=== PATIENT | female | born 2000 | race Caucasian/White ===

== ENCOUNTER 2021-03-02 18:48 | Emergency (ER) | payer OTHER ==
[~2021-03-02] VITALS: Ht 167.6 cm; Wt 44.0 kg
--- NOTE | 2021-03-02 19:10 | NUR ---
urine collected and sent to the lab.
--- NOTE | 2021-03-02 19:13 | NUR ---
PATIENT CAME TO ER BED 9 C/O UNABLE TO HOLD DOWN FOOD FOR THE PAST 5x DAYS. PATIENT STATES THAT WHENEVER SHE EATS, SHE WILL VOMIT OUT THE FOOD SHORTLY AFTER. PATIENT DENIES ANY PAIN. ALERT AND ORIENTED x4. DENIES SHORTNESS OF BREATH. CONNECTED TO THE MONITOR. WILL CONTINUE TO MONITOR CLOSELY.
--- NOTE | 2021-03-02 19:19 | NUR ---
BLOOD COLLECTED AND SENT TO THE LAB.
[2021-03-02] MEDS ORDERED: IV NS 0.9% 1,000 ML BAG IV ONE (19:30)
[2021-03-02 19:32] LABS: BASOPHILS % (AUTO) 0.5 % (0.0-2.0); EOSINOPHILS % (AUTO) 0.7 % (0.0-6.0); HEMATOCRIT 44 % (33-45); HEMOGLOBIN 14.6 g/dL (11.5-14.8); LYMPHOCYTES # (AUTO) 1.7 /CMM (0.8-4.8); LYMPHOCYTES % (AUTO) 26.9 % (20.0-44.0); MEAN CORPUSCULAR HGB CONC 33 g/dl (31.0-36.0); MEAN CORPUSCULAR VOLUME 85 fL (82-100); MONOCYTES # (AUTO) 0.7 /CMM (0.1-1.30); MONOCYTES % (AUTO) 10.9 % (2.0-12.0); NEUTROPHILS # (AUTO) 3.8 /CMM (1.8-8.9); PLATELET COUNT (AUTO) 217 /CMM (150-450); RED BLOOD CELL COUNT(AUTO) 5.21 MIL/uL (4.0-5.2); WHITE BLOOD COUNT (AUTO) 6.2 K/uL (4.3-11.0)
[2021-03-02 19:45] LABS: CALCIUM, SERUM 9.5 mg/dL (8.5-10.1); CREATININE 0.8 mg/dL (0.6-1.3); POTASSIUM 3.9 mmol/L (3.5-5.1)
[2021-03-02 19:50] LABS: ALBUMIN 4.8 g/dL (3.4-5.0); BILIRUBIN,DIRECT 0.1 mg/dL (0.0-0.2); BILIRUBIN,TOTAL 0.4 mg/dL (0.2-1.0); TOTAL PROTEIN, SERUM 9.1 g/dL (6.4-8.2)
[2021-03-02 19:57] LABS: BILIRUBIN,URINE Negative (NEGATIVE); COLOR,URINE YELLOW (YELLOW); LEUKOCYTE ESTERASE ,URINE Trace (NEGATIVE); NITRITE, URINE Negative (NEGATIVE); PH,URINE 6.5 (5.0-8.0); PROTEIN,URINE Negative (NEGATIVE); UGLUCOSE Negative (NEGATIVE); UROBILINOGEN,URINE 0.2 EU/dL (0.2)
[2021-03-02 20:28] LABS: BACTERIA,URINE None seen /HPF (None Seen); RBC,URINE 21-50 /HPF (0-2); SQUAMOUS EPITHELIAL CELL,UR Few /HPF (None Seen)
[2021-03-02] MEDS ORDERED: ONDA4TAB11 PO (20:39)
[2021-03-02 20:48] VITALS: BP 118/79
--- NOTE | 2021-03-02 20:48 | NUR ---
IV removed. Catheter intact and site benign. Pressure and 4x4 applied to site. No bleeding noted.
--- NOTE | 2021-03-02 20:48 | NUR ---
Patient discharged to home in stable condition. Written and verbal after care instructions given. Patient verbalizes understanding of instruction.
== END 2021-03-02 20:49 | disposition home or self-care (01) ==
LOC: ER 18:57
DX: R11.0 Nausea (principal); R63.0 Anorexia; F41.9 Anxiety disorder, unspecified
CPT/HCPCS: 36415; 80048; 80076; 81001; 83690; 84703; 85025; 96360; 99283; J7030

== ENCOUNTER 2021-11-03 19:58 | Emergency (ER) | payer OTHER ==
[~2021-11-03 19:58] MED LIST: ONDA4TAB11 PO
--- NOTE | 2021-11-03 20:18 | NUR ---
CALLED FOR [facility] NOT IN WAITING ROOM
--- NOTE | 2021-11-03 20:28 | NUR ---
PATIENT LEFT WITHOUT BEING SEEN
== END 2021-11-03 20:29 | disposition left against medical advice (07) ==
LOC: ER 20:03
DX: Z53.21 Procedure and treatment not carried out due to patient leaving prior to being seen by health care provider (principal)

== ENCOUNTER 2021-11-03 21:21 | Emergency (ER) | payer OTHER ==
[~2021-11-03] VITALS: Ht 167.6 cm; Wt 44.5 kg
[2021-11-03 22:10] VITALS: BP 128/79
[2021-11-03] MEDS ORDERED: IBUPROFEN 400 MG TABLET ONE (22:17)
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
[2021-11-03] MEDS ORDERED: IBUPROFEN 400 MG TABLET PO ONE (22:30)
== END 2021-11-03 23:15 | disposition home or self-care (01) ==
LOC: ER 21:22
DX: S83.92XA Sprain of unspecified site of left knee, initial encounter (principal); S50.11XA Contusion of right forearm, initial encounter; F41.9 Anxiety disorder, unspecified; Z60.2 Problems related to living alone; Z79.899 Other long term (current) drug therapy; Y09 Assault by unspecified means; Y93.89 Activity, other specified; Y92.89 Other specified places as the place of occurrence of the external cause; Y99.8 Other external cause status
CPT/HCPCS: 73090-TC; 73564-TC

== ENCOUNTER 2021-11-11 08:26 | Emergency (ER) | payer OTHER ==
[~2021-11-11] VITALS: Ht 165.1 cm; Wt 43.1 kg
[2021-11-11 08:41] VITALS: BP 104/74
--- NOTE | 2021-11-11 08:48 | NUR ---
SEEN AND EXAMINED BY .
--- NOTE | 2021-11-11 08:57 | NUR ---
Patient discharged to home in stable condition. Written and verbal after care instructions given. Patient verbalizes understanding of instruction.
== END 2021-11-11 08:58 | disposition home or self-care (01) ==
LOC: ER 08:29
DX: R63.0 Anorexia (principal); B34.9 Viral infection, unspecified; U07.1 COVID-19; F41.9 Anxiety disorder, unspecified; Z60.2 Problems related to living alone; Z79.899 Other long term (current) drug therapy; Z68.1 Body mass index [BMI] 19.9 or less, adult

== ENCOUNTER 2023-06-22 19:15 | Emergency (ER) | payer MEDICAID, OTHER ==
[~2023-06-22] VITALS: Ht 167.6 cm; Wt 47.2 kg
[2023-06-22] MEDS ORDERED: ACETAMINOPHEN ES 500 MG TABLET PO ONE (20:00)
[2023-06-22] MEDS ORDERED: ACETAMINOPHEN ES 500 MG TABLET ONE (20:08)
[2023-06-22 20:15] LABS: PREGNANCY TEST URINE QUAL NEGATIVE (NEGATIVE)
[2023-06-22] MEDS ORDERED: IBUP-1953 PO (20:29)
[2023-06-22] MEDS ORDERED: ACET-2605 PO (20:29)
[2023-06-22] MEDS ORDERED: IBUP-1955 PO (20:50)
[2023-06-22 20:56] VITALS: BP 114/76; TEMP 98.7; O2SAT 97
== END 2023-06-22 20:55 | disposition home or self-care (01) ==
LOC: ER 19:18
DX: M54.2 Cervicalgia (principal); R07.81 Pleurodynia; F41.9 Anxiety disorder, unspecified; Z60.2 Problems related to living alone; Z79.899 Other long term (current) drug therapy; V89.2XXA Person injured in unspecified motor-vehicle accident, traffic, initial encounter; Y93.89 Activity, other specified; Y92.89 Other specified places as the place of occurrence of the external cause; Y99.8 Other external cause status
CPT/HCPCS: 71045-TC; 84703-TC

== ENCOUNTER 2023-11-13 10:03 | Emergency (ER) | payer MEDICAID ==
[~2023-11-13 10:03] MED LIST changes: +ACET-2605 PO; +IBUP-1955 PO
== END 2023-11-13 12:00 | disposition left against medical advice (07) ==
LOC: ER 10:06
DX: M54.9 Dorsalgia, unspecified (principal); Z53.21 Procedure and treatment not carried out due to patient leaving prior to being seen by health care provider

== ENCOUNTER 2024-06-29 13:29 | Emergency (ER) | payer MEDICAID ==
[~2024-06-29] VITALS: Ht 167.6 cm; Wt 45.4 kg
[2024-06-29] MEDS ORDERED: ONDANSETRON HCL/PF 4 MG/2 ML VIAL ONE (13:54)
[2024-06-29 13:59] LABS: BASOPHILS % (AUTO) 0.5 % (0.0-2.0); EOSINOPHILS # (AUTO) 0.1 K/uL (0.0-0.7); EOSINOPHILS % (AUTO) 0.6 % (0.0-6.0); HEMATOCRIT 44 % (33-45); HEMOGLOBIN 15.3 g/dL (11.5-14.8); LYMPHOCYTES # (AUTO) 1.7 K/uL (0.8-4.8); LYMPHOCYTES % (AUTO) 19.5 % (20.0-44.0); MEAN CORPUSCULAR HEMOGLOBIN 30 PG (26.0-33.0); MEAN CORPUSCULAR HGB CONC 35 g/dl (31.0-36.0); MEAN CORPUSCULAR VOLUME 87 fL (82-100); MONOCYTES # (AUTO) 0.5 K/uL (0.1-1.30); MONOCYTES % (AUTO) 6.4 % (2.0-12.0); NEUTROPHILS # (AUTO) 6.3 K/uL (1.8-8.9); PLATELET COUNT (AUTO) 223 K/uL (150-450); RED BLOOD CELL COUNT(AUTO) 5.04 MIL/uL (4.0-5.2); RED CELL DISTRIBUTION WIDTH 12.7 % (11.5-15.0); WHITE BLOOD COUNT (AUTO) 8.6 K/uL (4.3-11.0)
[2024-06-29] MEDS: IV NS 0.9% 1,000 ML BAG IV ONE (14:00)
[2024-06-29] MEDS: ONDANSETRON HCL/PF 4 MG/2 ML VIAL IV ONE (14:01)
[2024-06-29 14:15] LABS: CALCIUM, SERUM 9.5 mg/dL (8.5-10.1); CREATININE 0.7 mg/dL (0.6-1.3)
[2024-06-29 14:27] LABS: ALBUMIN 4.6 g/dL (3.4-5.0); BILIRUBIN,DIRECT 0.2 mg/dL (0.0-0.2); BILIRUBIN,TOTAL 0.7 mg/dL (0.2-1.0); TOTAL PROTEIN, SERUM 8.5 g/dL (6.4-8.2)
[2024-06-29 15:10] LABS: APPEARANCE,URINE CLEAR (CLEAR); BILIRUBIN,URINE NEGATIVE (NEGATIVE); BLOOD, URINE NEGATIVE Ery/uL (NEGATIVE); COLOR,URINE YELLOW (YELLOW); KETONES,URINE TRACE mg/dL (NEGATIVE); LEUKOCYTE ESTERASE ,URINE NEGATIVE (NEGATIVE); NITRITE, URINE NEGATIVE (NEGATIVE); PROTEIN,URINE TRACE mg/dl (NEGATIVE); UGLUCOSE NEGATIVE (NEGATIVE); UROBILINOGEN,URINE 0.2 EU/dL (0.2)
[2024-06-29 15:15] LABS: PREGNANCY TEST URINE QUAL NEGATIVE (NEGATIVE)
[2024-06-29 15:44] LABS: ADD URINE CULTURE NO; BACTERIA,URINE Few /HPF (None Seen); RBC,URINE 0-2 /HPF (0-2); SQUAMOUS EPITHELIAL CELL,UR Few /HPF (None Seen); WBC,URINE 0-2 /HPF (0-3)
[2024-06-29] MEDS ORDERED: ONDA4TAB5 PO (15:58)
[2024-06-29 16:04] VITALS: BP 105/71; TEMP 98; O2SAT 99
== END 2024-06-29 16:00 | disposition home or self-care (01) ==
LOC: ER 13:33
DX: R11.2 Nausea with vomiting, unspecified (principal); R10.2 Pelvic and perineal pain; Z79.899 Other long term (current) drug therapy; Z60.2 Problems related to living alone
CPT/HCPCS: 99283; 96360; 85025; 80048; 83690; 80076; 84703; 81001; 36415; J7030; J2405

== ENCOUNTER 2024-10-02 16:10 | Emergency (ER) | payer MEDICAID ==
[~2024-10-02] VITALS: Ht 162.6 cm; Wt 45.4 kg
[~2024-10-02 16:10] MED LIST changes: +ONDA4TAB5 PO
[2024-10-02] MEDS ORDERED: ONDANSETRON HCL/PF 4 MG/2 ML VIAL ONE (16:32)
[2024-10-02] MEDS ORDERED: KETOROLAC TROMETHAMINE INJ 30 MG/ML VIAL ONE (16:39)
[2024-10-02] MEDS: IV NS 0.9% 1,000 ML BAG IV ONE (16:39)
[2024-10-02] MEDS: ONDANSETRON HCL/PF 4 MG/2 ML VIAL IVP ONE (16:39)
[2024-10-02 16:46] LABS: BASOPHILS # (AUTO) 0.1 K/uL (0.0-0.2); BASOPHILS % (AUTO) 0.6 % (0.0-2.0); EOSINOPHILS # (AUTO) 0.1 K/uL (0.0-0.7); EOSINOPHILS % (AUTO) 0.6 % (0.0-6.0); HEMATOCRIT 44 % (33-45); HEMOGLOBIN 14.8 g/dL (11.5-14.8); LYMPHOCYTES # (AUTO) 2.6 K/uL (0.8-4.8); LYMPHOCYTES % (AUTO) 24.5 % (20.0-44.0); MEAN CORPUSCULAR HEMOGLOBIN 30 PG (26.0-33.0); MEAN CORPUSCULAR HGB CONC 34 g/dl (31.0-36.0); MEAN CORPUSCULAR VOLUME 89 fL (82-100); MONOCYTES # (AUTO) 0.8 K/uL (0.1-1.30); MONOCYTES % (AUTO) 7.4 % (2.0-12.0); NEUTROPHILS % (AUTO) 66.9 % (43.0-81.0); PLATELET COUNT (AUTO) 223 K/uL (150-450); RED BLOOD CELL COUNT(AUTO) 4.96 MIL/uL (4.0-5.2); RED CELL DISTRIBUTION WIDTH 12.8 % (11.5-15.0); WHITE BLOOD COUNT (AUTO) 10.4 K/uL (4.3-11.0)
[2024-10-02 16:56] LABS: CALCIUM, SERUM 9.3 mg/dL (8.5-10.1); CREATININE 0.9 mg/dL (0.6-1.3)
[2024-10-02] MEDS: KETOROLAC TROMETHAMINE INJ 30 MG/ML VIAL IV ONE (17:02)
[2024-10-02] MEDS ORDERED: ONDA4TAB5 PO (17:31)
[2024-10-02] MEDS ORDERED: POTASSIUM CHLORIDE 20 MEQ TAB.PRT.SR PO ONE (17:44)
[2024-10-02] MEDS: POTASSIUM CHLORIDE 20 MEQ TAB.PRT.SR PO ONE (17:49)
[2024-10-02] MEDS ORDERED: ACETAMINOPHEN ES 500 MG TABLET ONE (18:28)
[2024-10-02] MEDS: ACETAMINOPHEN ES 500 MG TABLET PO ONE (18:38)
[2024-10-02 19:19] VITALS: BP 118/80; TEMP 98; O2SAT 95
== END 2024-10-02 19:20 | disposition home or self-care (01) ==
LOC: ER 16:12
DX: O26.891 Other specified pregnancy related conditions, first trimester (principal); O21.9 Vomiting of pregnancy, unspecified; O99.331 Smoking (tobacco) complicating pregnancy, first trimester; F17.200 Nicotine dependence, unspecified, uncomplicated; R10.2 Pelvic and perineal pain; Z3A.01 Less than 8 weeks gestation of pregnancy; Z60.2 Problems related to living alone
CPT/HCPCS: 99284; 96374; 96361; 96375; 85025; 80048; 36415; 84702; J1885; J2405; J7030

== ENCOUNTER 2024-12-31 15:28 | Emergency (ER) | payer MEDICAID ==
[~2024-12-31] VITALS: Ht 167.6 cm; Wt 45.4 kg
[~2024-12-31 15:28] MED LIST changes: -ONDA4TAB11 PO
[2024-12-31 15:56] VITALS: TEMP 98.8
[2024-12-31] MEDS ORDERED: IBUPROFEN 600 MG TABLET ONE (17:13)
[2024-12-31] MEDS: IBUPROFEN 600 MG TABLET PO ONE (17:18)
[2024-12-31] MEDS ORDERED: ACETAMINOPHEN ES 500 MG TABLET ONE (17:20)
[2024-12-31] MEDS: ACETAMINOPHEN ES 500 MG TABLET PO ONE (17:22)
[2024-12-31] MEDS ORDERED: BENZ-13 PO (17:40)
[2024-12-31] MEDS ORDERED: IBUP-1955 PO (17:40)
[2024-12-31] MEDS ORDERED: BENZ1LOZ58 PO (17:40)
[2024-12-31] MEDS ORDERED: ACET-2605 PO (17:40)
[2024-12-31 17:46] VITALS: BP 98/60; O2SAT 98
== END 2024-12-31 17:39 | disposition home or self-care (01) ==
LOC: ER 15:30
DX: B34.9 Viral infection, unspecified (principal); R63.0 Anorexia; R05.9 Cough, unspecified; F17.200 Nicotine dependence, unspecified, uncomplicated; F41.9 Anxiety disorder, unspecified; Z68.1 Body mass index [BMI] 19.9 or less, adult; Z60.2 Problems related to living alone; Z20.822 Contact with and (suspected) exposure to COVID-19

== ENCOUNTER 2025-04-03 01:53 | Emergency (ER) | payer MEDICAID ==
[~2025-04-03 01:53] MED LIST changes: +BENZ-13 PO; +BENZ1LOZ58 PO
== END 2025-04-03 02:44 | disposition left against medical advice (07) ==
LOC: ER 01:56
DX: R00.2 Palpitations (principal); Z53.21 Procedure and treatment not carried out due to patient leaving prior to being seen by health care provider

== ENCOUNTER 2025-06-13 20:27 | Emergency (ER) | payer MEDICAID | END 2025-06-13 21:02 | disposition left against medical advice (07) | LOC: ER 20:28 | DX: R06.02 Shortness of breath (principal); Z53.21 Procedure and treatment not carried out due to patient leaving prior to being seen by health care provider ==

== ENCOUNTER 2025-06-20 14:40 | Emergency (ER) | payer MEDICAID ==
[~2025-06-20] VITALS: Ht 165.1 cm; Wt 47.2 kg
[2025-06-20] MEDS ORDERED: AZIT250T13 PO (15:46)
[2025-06-20] MEDS ORDERED: DOXY100C2 PO (15:46)
[2025-06-20] MEDS ORDERED: GUAI1TBM19 PO (15:46)
[2025-06-20] MEDS ORDERED: HYDR-500 PO (15:52)
[2025-06-20 16:17] VITALS: BP 116/77; TEMP 98.1; O2SAT 98
[2025-06-21] MEDS ORDERED: HYDR-500 PO (16:20)
== END 2025-06-20 16:17 | disposition home or self-care (01) ==
LOC: ER 14:51
DX: R00.2 Palpitations (principal); R06.02 Shortness of breath; F41.9 Anxiety disorder, unspecified; Z79.899 Other long term (current) drug therapy; Z60.2 Problems related to living alone
CPT/HCPCS: 99283; 93005; 82962; Q0177

== ENCOUNTER 2025-07-06 13:07 | Emergency (ER) | payer MEDICAID ==
[~2025-07-06] VITALS: Ht 167.6 cm; Wt 46.7 kg
[~2025-07-06 13:07] MED LIST changes: +HYDR-500 PO
[2025-07-06] MEDS ORDERED: FLUO10CA29 PO (15:17)
[2025-07-06] MEDS ORDERED: ONDA4TAB5 PO (15:17)
[2025-07-06] MEDS ORDERED: LORA-259 PO (15:17)
[2025-07-06 15:31] VITALS: BP 117/85; TEMP 98; O2SAT 98
== END 2025-07-06 15:32 | disposition home or self-care (01) ==
LOC: ER 13:13
DX: R07.89 Other chest pain (principal); R11.2 Nausea with vomiting, unspecified; F41.9 Anxiety disorder, unspecified; R06.02 Shortness of breath; F17.200 Nicotine dependence, unspecified, uncomplicated